=== PATIENT | female | born 1965 | race Caucasian/White ===

== ENCOUNTER → 2017-04-26 | Outpatient (CLI) | payer MEDICAID ==
[~2017-04-26] MED LIST: AMLO5TAB PO; ASPIRIN 81MG TA81 MG PO; ATORVASTATIN CA10 M1 PO; BACTRIM DS 8001 TA1 PO; CELEXA20 M1 PO; ESCITALOPRAM10 M1 PO; FLEXERIL10 MG PO; GABAPENTIN 600600 MG PO; HYDROCHLOROTHIA25 M1 PO; HYDROCODONE1 TABLET PO; LISINOPRIL20 MG PO; LORAZEPAM0.5 MG/TAB PO; METFORMIN1000 MG PO; NICOTINE PATCH;21 MG TD; PLAVIX 75MG TAB75 MG PO; VENTOLIN H0.09 MG/AC IH; VITAMIN D50000 IU PO
--- NOTE | 2017-04-27 15:35 | RADIOLOGY REPORT PS360 ---
History and Indication: Coronary artery disease, obesity, hypertension, diabetes, hyperlipidemia, tobacco use, family history, shortness of breath and abnormal EKG. Procedure: Patient received a 0.4 mg of Lexiscan, resting heart rate was 71 bpm, resting blood pressure 142/69, with Lexiscan maximum heart rate achieved was 88 bpm which is less than 85% of the maximum predicted heart rate and a blood pressure was 167/86. With Lexiscan patient complained of mild headache and malaise. Electrocardiogram: Resting electrocardiogram showed sinus rhythm nonspecific ST-T changes, with Lexiscan there is almost [address] segment depression noted from the baseline EKG. The EKG portion of the Lexiscan Myoview is positive for ischemia. Cardiac stress and resting SPECT images: Cardiac stress and the rest spect images were obtained using technetium 99 Myoview 10.9 mCi at rest and 30.6 mCi at stress, gated SPECT further analysis of segmental wall motion and calculation of the ejection fraction also done. Cardiac stress and rest SPECT images show decreased tracer activity in the anteroapical wall which improves on the resting images suggestive of reversible ischemia, indentation of fixed defect involving the posterolateral wall consistent with area of prior myocardial scarring. Computer derived ejection fraction is 49% with posterolateral wall hypokinesis. Right ventricle is normal size and contractility. Conclusion: 1. The EKG portion of the Lexiscan Myoview is positive for ischemia. 2. Scintigraphic evidence of mild reversible ischemia involving the anterior and anterior apical wall, scintigraphic evidence of prior myocardial scarring involving the posterolateral wall. Computer derived ejection fraction is 49% segmental wall motion abnormality described above. 3. Abnormal scan Myoview study.
--- NOTE | 2017-04-27 17:04 | RADIOLOGY REPORT PS360 ---
ECHO ADULT PROCEDURE: INDICATIONS FOR THE TEST: Chest pain X COPD Heart Murmur Tobacco SmokingX Palpitations Fatigue Syncope Edema HypertensionXDiabetes MellitusX Rheumatic Fever SOB MARCUM ObesityXHyperlipidemia Family History HD Additional History ABN EKG PATIENT INFORMATION HEIGHT: 73 WEIGHT:262 GENDER: Female B/P:158/66 2-D/M-MODE INTERPRETATION: 2-D MEASUREMENTS OBSERVED VALUES IN CMS Right Ventricular Dimension (RVDd) 1.6 Interventricular Septum (Thickness)(IVsd) 1.2 Left Ventricular Internal Dimensions(LVIDd) 5.7 Left Ventricular Posterior Wall (Thickness)(LVPWd) 1.0 Aortic Root 3.1 Aortic Cusp Separation 1.6 Left Atrial Dimensions (LAD) 3.8 2D 1. This is technically difficult study because of the patient's factor and poor acoustic windows. 2. The left atrium is mildly enlarged, left ventricle is normal size, septum has sigmoid configuration, visually estimated ejection fraction 55% with no obvious regional wall motion abnormality. There is mild concentric left ventricular hypertrophy present 3. The right atrium and right ventricle are relatively normal size and function. 4. The aortic valve is minimally thickened and fibrosed. 5. The mitral and tricuspid valve is grossly normal. 6. The pulmonic valve is poorly visualized. 7. No significant pericardial effusion noted. DOPPLER INTERROGATION: Doppler interrogation of the aortic, mitral and tricuspid valvular presence of mild mitral and tricuspid regurgitation, tricuspid and jet velocity insufficient for calculation of the right ventricular systolic pressure, grade 1 diastolic dysfunction seen with tissue Doppler evidence of raised left atrial pressure. CONCLUSION: 1. Technically difficult study because of the patient's factor and poor acoustic windows. 2. Mildly enlarged left atrium, normal left ventricular size, mild concentric left ventricular hypertrophy, septum has sigmoid configuration, visually estimated ejection fraction of 55% with no obvious regional wall motion abnormality. Grade 1 diastolic dysfunction seen with tissue Doppler evidence of raised left atrial pressure. 3. Mild mitral and tricuspid regurgitation. 4. No significant pericardial effusion noted.
--- NOTE | 2017-05-01 15:22 | RADIOLOGY REPORT PS360 ---
DIG MAMM-SCREEN [facility] W/CAD CAD Screening COMPARISON: Digital mammograms 10/30/2012 and 04/09/2014 from [place], [place] INDICATION: There is a history of breast cancer patient's mother diagnosed at age 45 TECHNIQUE: Standard CC and MLO images were obtained. R2 CAD reviewed. FINDINGS: The breasts are composed primarily of fat with minimal scattered fibroglandular densities in each breast. There are couple of benign-appearing calcifications in each breast. There is no suspicious lesion in either breast and no suspicious microcalcifications. IMPRESSION: Fatty type breast parenchyma with no suspicious lesion seen recommend yearly follow-up BI-RADS CATEGORY: 2_Benign RECOMMENDED FOLLOWUP: 12M 12 MONTH FOLLOW-UP (A letter has been sent to the patient regarding results of the study.)
== END ==
LOC: RAD 10:30
DX: Z12.31 Encounter for screening mammogram for malignant neoplasm of breast (principal); R53.83 Other fatigue; R94.31 Abnormal electrocardiogram [ECG] [EKG]; I25.10 Atherosclerotic heart disease of native coronary artery without angina pectoris
CPT/HCPCS: A9502; G0202; J2785